=== PATIENT | female | born 1965 | race Caucasian/White ===

== ENCOUNTER 2021-06-21 15:07 | Outpatient (CLI) | payer BC, SELFPAY ==
--- NOTE | ~2021-06-21 | MM_ITS ---
EXAMINATION: MM screening [facility] BI w yanick HISTORY: Screening mammogram TECHNIQUE: Craniocaudal and mediolateral oblique 3-D tomosynthesis images were obtained and synthetic 2-D images were generated. CAD analysis was submitted and interpreted. COMPARISON: 07/10/2019, 09/04/2016, 11/25/2013 BREAST PARENCHYMAL COMPOSITION: There are scattered areas of fibroglandular density. FINDINGS: There is no evidence of suspicious mass, calcification, or architectural distortion to sugg est malignancy in either breast. There has been no suspicious interval change. IMPRESSION: 1. No mammographic evidence of malignancy. 2. Recommend routine screening mammography in one year. BI-RADS Category 1: Negative Reviewed, dictated and finalized at location A. PART REDUCER
== END 2021-06-21 15:08 | disposition home or self-care (01) ==
LOC: ANHIMG 15:09
PROVIDERS: PCP Family Medicine; Visit Provider Obstetrics & Gynecology
DX: Z12.31 Encounter for screening mammogram for malignant neoplasm of breast (principal)
CPT/HCPCS: 77063; 77067

== ENCOUNTER 2022-05-24 18:16 | Observation (INO) | payer BC, SELFPAY ==
--- NOTE | ~2022-05-24 | MR_ITS ---
EXAMINATION: MR MRCP wo/w con/w 3D wo ind DATE: 05/25/2022 08:04 INDICATION: Epigastric pain and elevated liver enzymes TECHNIQUE: Magnetic resonance imaging (MRI) of the abdomen was performed without and with 20 mL Multi isabel intravenous contrast. Sequences included coronal T2-weighted SS-FSE, coronal T2-weighted FS SS- FSE, coronal T2-weighted FS FIESTA, axial T2-weighted FS FIESTA, axial T2-weighted FIESTA, sagittal T 2-weighted SS-FSE, axial T1-weighted dual-echo FSPGR, axial T2-weighted SS-FSE, axial T1-weighted LAV A, axial T2-weighted STIR FSE. Thick-slab T2-weighted FRFSE-XL images were obtained for magnetic reso nance cholangiopancreatography (MRCP). Rotating maximum intensity projection 3-D reconstructions of t he volumetric data were created by the technologist. Postcontrast sequences included a time course of axial T1-weighted LAVA. COMPARISON: CT abdomen pelvis dated 06/03/2022 FINDINGS: ABDOMEN MRI: Heart size is normal. No pericardial or pleural effusion. There is subtle increased signal in the dep endent lower lobes which on immediately prior CT appears most consistent with atelectasis. Status pos t cholecystectomy. There is periportal edema at the liver. Spleen, pancreas, bilateral adrenal glands and kidneys are normal. Visualized portion of the bowels are unremarkable. The uterus is not identif ied and has likely been surgically resected. No pathologically enlarged abdominal or pelvic lympha denopathy. Mild thoracic and lumbar spondylosis. ABDOMEN MRCP: Is mild dilation of the common hepatic duct which measures up to 8 mm, decreasing to 6 mm at the prox imal common bile duct and tapering distally in the duct with no evident obstructing stones or masses. The main pancreatic duct is normal. No significant intrahepatic biliary ductal dilation. IMPRESSION: 1. Mild dilation of the common hepatic ducts which is within normal limits post cholecystectomy with no intrahepatic biliary ductal dilation. There is however nonspecific mild periportal edema which cou ld be due to acute hepatitis, congestive heart failure cholangitis, blunt trauma, sepsis or aggressiv e fluid resuscitation. Reviewed, dictated and finalized at location A. ARY COOK IMPRESSION: 1. Mild dilation of the common hepatic ducts which is within normal limits post cholecystectomy with no intrahepatic biliary ductal dilation. There is however nonspecific mild periportal edema which could be due to acute hepatitis, conge stive heart failure cholangitis, blunt trauma, sepsis or aggressive fluid resus citation.
--- NOTE | ~2022-05-24 | CT_ITS ---
EXAMINATION: CT abdomen pelvis w con DATE: 05/25/2022 00:10 INDICATION: Upper abdominal/epigastric pain, nausea and elevated liver enzymes TECHNIQUE: Computed tomography (CT) of the abdomen and pelvis was performed with 100 mL Omnipaque-350 intravenous contrast. Automated exposure control and iterative reconstruction technique were employe d. The dose-length product was 986.26 mGy-cm. COMPARISON: 08/26/2007 FINDINGS: Mild dependent atelectasis in the bilateral lower lobes. Heart size is normal. No pericardial or pleu ral effusion. Calcified right hilar and mediastinal lymph nodes along with a few splenic calcific les ions consistent with old granulomatous disease. Postoperative change of prior sleeve gastrectomy with suture line along the greater curvature of the stomach. Mild dilation the common hepatic duct which measures up to 11 mm. This tapers throughout the course of the more distal common bile duct with no e vident obstructing stricture, mass or stone. Minimal central intrahepatic biliary ductal dilation. Blake th findings are within normal limits post cholecystectomy with surgical clips at the gallbladder nayeli a. Pancreas, bilateral adrenal glands and kidneys are normal. Appendix is not visualized with suture line near the tip of the cecum consistent with prior appendectomy. Bladder is normal. The uterus is n ot identified and has likely been surgically resected. Bilateral adnexa are unremarkable. No free int raperitoneal gas or fluid. No pathologically enlarged abdominal or pelvic lymphadenopathy. Moderate t o severe lower lumbar facet osteoarthritis. Mild to moderate osteoarthritis at the bilateral hip and sacroiliac joints. IMPRESSION: 1. Mild dilation the common hepatic and common bile ducts and minimal intrahepatic biliary ductal dil ation which is within normal limits with no evident obstructing stone or mass. Given the 11th of func tion tests consider MRCP to assess for occult stone. 2. Multiple postoperative changes detailed above. Reviewed, dictated and finalized at location A. UREMENT INSPECTOR IMPRESSION: 1. Mild dilation the common hepatic and common bile ducts and minimal intrahepa tic biliary ductal dilation which is within normal limits with no evident obstr ucting stone or mass. Given the 11th of function tests consider MRCP to assess for occult stone. 2. Multiple postoperative changes detailed above.
[2022-05-24 18:35] VITALS: BP 154/108; PULSE 68; RESP 18; TEMP 36.6; O2SAT 98
--- NOTE | 2022-05-24 18:43 | ECG_ITS ---
Measurements Intervals [place] Rate: 60 P: 31 [place]: 152 QRS: 14 QRSD: 95 T: 21 QT: 431 QTc: 432 Interpretive Statements SINUS RHYTHM NORMAL ECG NO PREVIOUS ECG AVAILABLE FOR COMPARISON Electronically Signed On 05-25-2022 8:32:52 OWNER PROFESSIONAL ENGINEER by Mert Vieira M.D.
[2022-05-24 19:02] LABS: Appearance Urine Clear (Clear); Bilirubin Urine Negative (Negative); Blood Urine Negative (Negative); Color Urine Yellow (Yellow); Glucose Urine UA Negative (Negative); Ketones Urine Negative (Negative); Leukocyte Esterase Ur Negative LEU/UL (Negative); Nitrate Urine Negative (Negative); Protein Urine Negative (Negative); Specific Grav Ur 1.015 (1.001-1.035); Urobilinogen Urine 0.2 mg/dL (<2.0)
[2022-05-24 19:05] LABS: Basophils Percent Auto 0.7 % (0.2-1.2); Eosinophils Percent Auto 0.7 % (0-4.4); Hematocrit 33.4 % (37.0-47.0); Hemoglobin 10.6 g/dL (12.0-15.0); Immature Granulocyte Absolute 0.01 K/mm3 (0.00-0.031); Immature Granulocyte Percent A 0.2 % (0-0.5); Immature Platelet Fraction Pct 5.1 % (0.9-11.2); Lymphocytes Absolute Auto 1.11 K/mm3 (0.9-3.2); Lymphocytes Percent Auto 27.2 % (18.3-44.2); Mean Corpuscular HGB Conc 31.7 g/dl (32-36); Mean Corpuscular Hemoglobin 27.5 pg (26-34); Mean Corpuscular Volume 86.5 fl (80-100); Mean Platelet Volume 10.8 fl (7.4-10.4); Monocytes Absolute Auto 0.4 K/mm3 (0.1-0.6); Monocytes Percent Auto 10.3 % (2.6-8.5); Neutrophils Absolute Auto 2.5 K/mm3 (1.3-6.7); Neutrophils Percent Auto 60.9 % (45.5-73.1); Platelet Count Result 87 k/mm3 (150-375); Red Blood Count 3.86 M/mm3 (4.2-5.4); Red Cell Distribution Width 14.6 % (11.5-14.5); White Blood Count 4.1 K/mm3 (4.5-10.0)
[2022-05-24 19:05] LABS: Add Urine Microscopic? NO
[2022-05-24 19:11] LABS: Alanine Aminotransferase 316 U/L (6-35); Albumin Level 4.2 g/dL (3.5-5.1); Alkaline Phosphatase 152 U/L (38-126); Anion Gap 5 mmol/L (8-16); Bilirubin,Total 1.5 mg/dL (0.2-1.3); Blood Urea Nitrogen 10 mg/dL (7-17); Carbon Dioxide 27 mmol/L (22-30); Chloride 103 mmol/L (98-107); Estimated CRCL calculation 89 ml/min; Estimated Glomerular Filt Rate > 60; Glucose 112 mg/dL (65-110); Lipase 114 U/L (23-300); Potassium 3.6 mmol/L (3.4-5.0); Sodium 135 mmol/L (137-145)
[2022-05-24 19:19] LABS: Aspartate Amino Transferase 942 U/L (14-36)
--- NOTE | 2022-05-24 23:34 | ED.ABDPAIN ---
HPI - Abdominal Pain General Chief Complaint: Abdominal Pain Stated Complaint: abdominal pain - hx ulcers Time Seen by Provider: 05/24/22 23:18 History of Present Illness HPI narrative: Patient is a 56-year-old female with a history of gastric sleeve 11 years ago, appendectomy, cholecystectomy, here for evaluation of epigastric abdominal discomfort. Patient states that her pain began while she was at rest earlier today. She describes it as a burning, gnawing sensation. She attempted Prilosec without relief of her symptoms. Additionally notes nausea but no vomiting. Her last bowel movement was today and was normal for her. No fevers, chills, new or suspicious foods. Patient does note frequent NSAID use and occasional alcohol use, about 3 drinks/week. Related Data Allergies Allergy/AdvReac Type Severity Reaction Status Date / Time codeine Allergy Unknown Hives Verified 05/24/22 18:17 NSAIDS (Non-Steroidal Allergy Unknown due to Verified 05/24/22 18:17 Anti-Inflamma gastric sleeve Review of Systems Review of Systems: Gen: Denies fevers or chills Eyes: Denies eye pain or visual change ENT: Denies congestion Respiratory: Denies shortness of breath or cough CV: Denies chest pain or palpitations GI: Reports abdominal pain, nausea. Denies emesis or diarrhea denies burning, urgency, frequency or hematuria Musculoskeletal: Denies back pain or muscle pain Neuro: Denies numbness, tingling, weakness or focal weakness Skin: Denies rash Except as documented, all other systems reviewed and negative PMFSH Surgical History Surgical History S/P appendectomy S/P bilateral breast reduction S/P cholecystectomy S/P D&C (status post dilation and curettage) S/P gastrectomy gastric sleeve S/P tonsillectomy S/P total hysterectomy Family History Family History Father Hypertension Mother Family history of diabetes mellitus in first degree relative Social History Social History Smoking status: Never smoker Alcohol intake: current Drinks per week: 3 Substance use: current Substance use type: marijuana Exam Narrative: APPEARANCE: uncomfortable appearing but no acute distress Head: Normocephalic and atraumatic. EYES: PERRLA/EOMI, conjunctivae clear NOSE: No nasal drainage EARS: External ear normal in appearance THROAT: Oropharynx is clear. Mucous membranes are moist. NECK: Supple. No adenopathy, no masses. RESPIRATORY: Airway patent, respirations nonlabored. Clear to auscultation bilaterally, no rales, rhonchi, wheezing. CARDIOVASCULAR: Regular rate and rhythm without murmurs, rubs, or gallops. ABDOMINAL: Slight tenderness in epigastric region with deep palpation. No rebound tenderness or guarding. Normoactive bowel sounds. Soft, nondistended. MUSCULOSKELETAL: Extremities are warm and well-perfused. Moves all extremities well. No edema. NEURO: Normal speech. No focal neurologic deficits. SKIN: Skin is warm and dry. No rashes. PSYCHIATRIC: Normal affect/mood. Course Vital Signs Vital signs: Vital Signs Temperature 97.8 F 05/24/22 18:35 Pulse Rate 68 05/24/22 18:35 Respiratory Rate 18 05/24/22 18:35 Blood Pressure 154/108 H 05/24/22 18:35 Pulse Oximetry 98 05/24/22 18:35 Oxygen Delivery Room Air 05/24/22 18:35 Temperature 97.8 F 05/24/22 18:35 Pulse Rate 62 05/25/22 02:02 Respiratory Rate 16 05/25/22 02:02 Blood Pressure 158/82 H 05/25/22 02:02 Pulse Oximetry 100 05/25/22 02:02 Oxygen Delivery Room Air 05/24/22 18:35 MDM - Abdominal Pain MDM Narrative Medical decision making narrative: 56-year-old female with history of cholecystectomy, appendectomy and gastric sleeve here for evaluation of epigastric abdominal pain for the past day. Patient is nontoxic-appearing and has normal vital signs.
[2022-05-24] MEDS: FAMOTIDINE 20 MG/2 ML VIAL IV PUSH (23:50)
[2022-05-24] MEDS: ONDANSETRON INJ 4 MG/2 ML VIAL IV PUSH (23:50)
[2022-05-25] MEDS: MORPHINE SULFATE (*CRX) 4 MG/ML INJ IV PUSH ×3 (01:50→09:46)
[2022-05-25] MEDS: SODIUM CHLORIDE 0.9% IV 1,000 ML 999 ML IV CONT (01:50)
[2022-05-25 02:02] VITALS: BP 158/82; PULSE 62; RESP 16; O2SAT 100
[2022-05-25 02:57] LABS: Influenza A QL RT-PCR Negative (Negative); Influenza B QL RT-PCR Negative (Negative); SARS-CoV-2 RNA PCR Negative
[2022-05-25 03:18] LABS: Hepatitis B Surface Antigen Negative (Negative)
[2022-05-25 03:23] LABS: HAV RESULT Negative (Negative); Hepatitis B Core IgM Result Negative (Negative)
[2022-05-25 03:32] LABS: Prothrombin Time 13.2 Seconds (11.1-14.7)
[2022-05-25 03:33] LABS: Partial Thromboplastin Time 27.5 SECONDS (22.3-36.8)
[2022-05-25 03:35] LABS: Hepatitis C Virus Antibody Negative (Negative)
[2022-05-25 04:10] VITALS: BMI 33.0
--- NOTE | 2022-05-25 04:14 | ADMGEN ---
This patient, Erin Loza, was admitted to [facility] Surg Room 332-02. Patient/family oriented to hospital policies and general routines including ID bracelet, bed and alarms, visiting hours, pain management, procedures, bathroom and other care routines, personal items, smoking policy, room service/diet, and visiting hours. Information on how to activate the Rapid Response Team has been discussed. Patient/Family are encouraged to report perceived risks to care and to ask questions if they do not understand what they are told or what they should do.
[2022-05-25] MEDS: SODIUM CHLORIDE 0.9% IV 1,000 ML 150 ML IV CONT (04:35)
[2022-05-25 06:00] VITALS: BP 151/73; PULSE 61; RESP 16; TEMP 36.1; O2SAT 98
[2022-05-25 08:40] LABS: Hematocrit 30.5 % (37.0-47.0); Hemoglobin 9.5 g/dL (12.0-15.0); Immature Platelet Fraction Pct 4.9 % (0.9-11.2); Mean Corpuscular HGB Conc 31.1 g/dl (32-36); Mean Corpuscular Hemoglobin 26.7 pg (26-34); Mean Corpuscular Volume 85.7 fl (80-100); Mean Platelet Volume 10.8 fl (7.4-10.4); Platelet Count Result 78 k/mm3 (150-375); Red Blood Count 3.56 M/mm3 (4.2-5.4); Red Cell Distribution Width 14.6 % (11.5-14.5); White Blood Count 2.9 K/mm3 (4.5-10.0)
--- NOTE | 2022-05-25 08:40 | PM.IMHP ---
H&P: HPI History of Present Illness Date/Time: 05/25/22 08:40 Chief Complaint: epigastric pain Narrative: date of service: 05/25/2022 Erin Loza is a 56 year old female with a history of hypertension, anxiety, depression, endometriosis, cholecystectomy in 2005 and sleeve gastrectomy in 2007 who presented to the emergency department 05/24/2022 with complaints abdominal burning. Her pain started yesterday morning around 10:00 a.m. after she ate part of a biscuit. Her pain worsened throughout the day. She did try Mylanta and Prilosec without any symptomatic improvement. She admits that she has been taking ibuprofen more frequently lately (a couple of times a week) and she was worried about an ulcer. She indicates that she has been instructed in the past to avoid NSAIDs due to her history of sleeve gastrectomy. Yesterday she felt that her epigastric region was hard and tender. Her pain was worse with deep inspiration. When she arrived to the ER she had dry heaves but never had any episodes of emesis. She denies any recent stool changes and reports that she has had regular, formed stools. Denies melena, hematochezia, hematemesis. Upon presentation to the ED, her vital signs were stable, she was afebrile, noted to be mildly pancytopenic, BMP unremarkable with elevated LFTs, total bilirubin 1.5, AST 942, ALT 316, alk-phos 152, lipase normal, stat read of CT of the abdomen/pelvis showed evidence of prior cholecystectomy with mild intrahepatic and extrahepatic biliary ductal dilation. At the time of my evaluation, she continues to endorse epigastric discomfort. she denies nausea , fever, chills. She is NPO. No shortness of breath or chest pain. The patient is being admitted to the hospitalist service for observation. Review of Systems Review of Systems: All systems reviewed & are unremarkable except as noted in HPI and below PMFSH Past Medical History Medical History (Updated 05/25/22 @ 08:51 by Ana Hancock PA-C) Anxiety Depression Endometriosis Hypertension Surgical History Surgical History (Updated 05/25/22 @ 08:51 by Ana Hancock PA-C) S/P appendectomy S/P bilateral breast reduction S/P cholecystectomy S/P D&C (status post dilation and curettage) S/P gastrectomy gastric sleeve S/P tonsillectomy S/P total hysterectomy Family History Family History Father Hypertension Colon cancer H/O heart surgery Mother Family history of diabetes mellitus in first degree relative COPD (chronic obstructive pulmonary disease) Stented coronary artery Social History Social History (Updated 05/25/22 @ 08:56 by Ana Hancock PA-C) Social History: 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 Case PA-C POA: Oliverio Loza () Code: Full Smoking status: Never smoker Alcohol intake: current Drinks per week: 2 Substance use: current Substance use type: marijuana Other substance usage details: edibles nightly for sleep Lack of Transportation: No Lack of Food: Never True Current Housing: I Have Housing Concerned About Future Housing: No Difficulty Paying Gas/Electric Bills: No Difficulty Paying for Meds: No Currently Unemployed: No Education: High School Diploma/GED Difficulty w/ Childcare or Family Care: No Spiritual care concerns: No Meds Home Medications and Allergies Home Medications Medication Instructions Recorded Confirmed Type citalopram 40 mg tablet (Celexa) 40 mg PO DAILY #90 tabs 11/13/21 05/25/22 Rx buspirone 15 mg tablet 15 mg PO BID 05/25/22 05/25/22 History ergocalciferol (vitamin D2) 1,250 1,250 mcg PO WEEKLY 05/25/22 05/25/22 History mcg (50,000 unit) capsule lisinopril 10 mg tablet 10 mg PO DAILY 05/25/22 05/25/22 History Allergies Allergy/AdvReac Type Severity Reaction Status Date / Time codeine Allergy Unknown Hives Verified 05/25/22 04:20
[2022-05-25 09:16] LABS: Alanine Aminotransferase 471 U/L (6-35); Albumin Level 3.7 g/dL (3.5-5.1); Alkaline Phosphatase 153 U/L (38-126); Anion Gap 3 mmol/L (8-16); Bilirubin,Total 3.3 mg/dL (0.2-1.3); Blood Urea Nitrogen 6 mg/dL (7-17); Calcium 8.2 mg/dL (8.4-10.2); Carbon Dioxide 28 mmol/L (22-30); Chloride 106 mmol/L (98-107); Estimated CRCL calculation 92 ml/min; Estimated Glomerular Filt Rate > 60; Glucose 88 mg/dL (65-110); Potassium 3.9 mmol/L (3.4-5.0); Sodium 137 mmol/L (137-145)
[2022-05-25] MEDS: SODIUM CHLORIDE 0.9% IV 1,000 ML 100 ML IV CONT (09:40)
--- NOTE | 2022-05-25 11:04 | WPDGICN ---
Assessment and Plan Assessment and plan (1) Epigastric abdominal pain: Code(s): R10.13 - Epigastric pain Status: Acute Assessment and Plan: Patient with epigastric pain somewhat burning in nature. Etiology unclear. This may represent dyspepsia. Plan to keep patient on pantoprazole for now. If pain persist EGD on Friday is advised. (2) S/P cholecystectomy: Code(s): Z90.49 - Acquired absence of other specified parts of digestive tract Status: Acute (3) Dilated bile duct: Code(s): K83.8 - Other specified diseases of biliary tract Status: Acute Assessment and Plan: Patient described as having mildly dilated bile ducts on imaging studies likely this is related to prior cholecystectomy and not related to her current condition. MRCP pending to exclude common bile duct obstruction. This will be reviewed when available. (4) Transaminitis: Code(s): R74.01 - Elevation of levels of liver transaminase levels Status: Acute Assessment and Plan: Elevated LFTs. The etiology for this is somewhat uncertain. Likely related to her current complaints of pain. Will check MRCP to exclude biliary obstruction. Fractionate bilirubin. Hepatitis serologies initially negative. She may have been exposed to a virus or agent causing this. Will continue monitor LFTs closely. (5) Pancytopenia: Code(s): D61.818 - Other pancytopenia Status: Acute Assessment and Plan: Patient found to have pancytopenia on laboratory testing. The etiology for this is somewhat unclear. May need hematologic evaluation at some point. No evidence cirrhosis by CT imaging or history. GI Consult Note Consult date/time: 05/25/22 11:04 Reason for consult: abdominal pain HPI: Erin Loza is a 56 year old female reports rather sudden onset of mid epigastric abdominal pain that began yesterday. She describes is somewhat burning in nature. Patient presented emergency room was found to have modest elevation of her LFTs. Patient has a past medical history of gastric sleeve for weight loss many years ago. She has a history of cholecystectomy. Patient denies any fever or jaundice. Her family history is noncontributory. She does report using NSAIDs r quite frequently. Review of Systems Review of Systems: Review of systems noncontributory. [facility] Past Medical History Medical History (Updated 05/25/22 @ 08:51 by Ana Hancock PA-C) Anxiety Depression Endometriosis Hypertension Surgical History Surgical History (Updated 05/25/22 @ 08:51 by Ana Hancock PA-C) S/P appendectomy S/P bilateral breast reduction S/P cholecystectomy S/P D&C (status post dilation and curettage) S/P gastrectomy gastric sleeve S/P tonsillectomy S/P total hysterectomy Family History Family History Father Hypertension Colon cancer H/O heart surgery Mother Family history of diabetes mellitus in first degree relative COPD (chronic obstructive pulmonary disease) Stented coronary artery Social History Social History (Updated 05/25/22 @ 08:56 by Ana Hancock PA-C) Social History: 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 Case PA-C POA: Oliverio Loza () Code: Full Smoking status: Never smoker Alcohol intake: current Drinks per week: 2 Substance use: current Substance use type: marijuana Other substance usage details: edibles nightly for sleep Lack of Transportation: No Lack of Food: Never True Current Housing: I Have Housing Concerned About Future Housing: No Difficulty Paying Gas/Electric Bills: No Difficulty Paying for Meds: No Currently Unemployed: No Education: High School Diploma/GED Difficulty w/ Childcare or Family Care: No Spiritual care concerns: No Meds Home Medications and Allergies Home Medications Medication Instruc
[2022-05-25 11:36] LABS: Aspartate Amino Transferase 801 U/L (14-36)
[2022-05-25] MEDS: PANTOPRAZOLE SODIUM IV 40 MG VIAL IV PUSH ×2 (12:33→20:34)
[2022-05-25 12:36] LABS: Bilirubin Direct 0.8 mg/dL (0-0.3); Bilirubin Indirect 1.4 mg/dL (0-1.1); Bilirubin,Total 3.3 mg/dL (0.2-1.3)
[2022-05-25 14:00] VITALS: BP 138/76; PULSE 75; RESP 18; TEMP 36.1; O2SAT 98
[2022-05-25] MEDS: ONDANSETRON INJ 4 MG/2 ML VIAL IV PUSH (20:59)
[2022-05-25 22:00] VITALS: BP 153/75; PULSE 61; RESP 18; TEMP 36.2; O2SAT 98
[2022-05-26 06:00] VITALS: BP 138/64; PULSE 54; RESP 14; TEMP 36.1; O2SAT 99
[2022-05-26 07:58] LABS: Basophils Percent Auto 0.6 % (0.2-1.2); Eosinophils Absolute Auto 0.1 K/mm3 (0-0.3); Eosinophils Percent Auto 2.1 % (0-4.4); Hematocrit 34.8 % (37.0-47.0); Hemoglobin 10.9 g/dL (12.0-15.0); Immature Granulocyte Absolute 0.01 K/mm3 (0.00-0.031); Immature Granulocyte Percent A 0.3 % (0-0.5); Immature Platelet Fraction Pct 6.5 % (0.9-11.2); Lymphocytes Absolute Auto 0.89 K/mm3 (0.9-3.2); Lymphocytes Percent Auto 27.3 % (18.3-44.2); Mean Corpuscular HGB Conc 31.3 g/dl (32-36); Mean Corpuscular Hemoglobin 27.7 pg (26-34); Mean Corpuscular Volume 88.3 fl (80-100); Mean Platelet Volume 10.4 fl (7.4-10.4); Monocytes Absolute Auto 0.3 K/mm3 (0.1-0.6); Monocytes Percent Auto 10.4 % (2.6-8.5); Neutrophils Absolute Auto 1.9 K/mm3 (1.3-6.7); Neutrophils Percent Auto 59.3 % (45.5-73.1); Platelet Count Result 91 k/mm3 (150-375); Red Blood Count 3.94 M/mm3 (4.2-5.4); Red Cell Distribution Width 14.4 % (11.5-14.5); White Blood Count 3.3 K/mm3 (4.5-10.0)
[2022-05-26 08:06] LABS: Alanine Aminotransferase 423 U/L (6-35); Alkaline Phosphatase 189 U/L (38-126); Anion Gap 6 mmol/L (8-16); Aspartate Amino Transferase 329 U/L (14-36); Bilirubin,Total 1.3 mg/dL (0.2-1.3); Blood Urea Nitrogen 4 mg/dL (7-17); Calcium 8.8 mg/dL (8.4-10.2); Carbon Dioxide 24 mmol/L (22-30); Chloride 103 mmol/L (98-107); Estimated CRCL calculation 92 ml/min; Estimated Glomerular Filt Rate > 60; Glucose 94 mg/dL (65-110); Potassium 3.8 mmol/L (3.4-5.0); Sodium 133 mmol/L (137-145)
[2022-05-26] MEDS: PANTOPRAZOLE SODIUM IV 40 MG VIAL IV PUSH (09:07)
--- NOTE | 2022-05-26 11:34 | WPDGIPROGNO ---
Progress Note: A&P Assessment and Plan (1) Epigastric abdominal pain: Code(s): R10.13 - Epigastric pain Status: Acute Assessment and Plan: Patient admitted with a burning epigastric pain. She does admit to rather frequent heavy use of nonsteroidal anti-inflammatory agents. I suspect she may have ulceration. Plan to continue PPI therapy. Avoid NSAIDs. An EGD will be performed in the morning. Should patient be discharged this could be performed electively as an outpatient. (2) Transaminitis: Code(s): R74.01 - Elevation of levels of liver transaminase levels Status: Acute Assessment and Plan: Elevated LFTs at the time of admission or events somewhat uncertain etiology. Continue monitor conservatively at this point. LFTs should be monitored to ensure they resolve completely. (3) Pancytopenia: Code(s): D61.818 - Other pancytopenia Status: Acute Assessment and Plan: Pain pancytopenia identified. No obvious signs of bleeding. Etiology for this remains unclear. She may benefit from hematologic evaluation at some point. (4) S/P cholecystectomy: Code(s): Z90.49 - Acquired absence of other specified parts of digestive tract Status: Acute Assessment and Plan: Patient with prior cholecystectomy. Likely this accounts for biliary dilatation noted on presentation. This is likely compensatory Subjective Date/time seen: 05/26/22 11:34 Patient reports abdomen more comfortable today. Denies any ongoing abdominal pain she does note a headache today. Review of Systems Review of Systems: Review of systems noncontributory. Exam Narrative: Physical exam reveals patient be alert. Vital signs stable. She is alert afebrile anicteric. Lungs are clear. Heart without murmur. Abdomen bowel sounds present soft nontender organomegaly. Objective Data Vital Signs Vital Signs: Vital Signs - 24 hr 05/25/22 14:00 05/25/22 20:34 05/25/22 22:00 Temperature 96.9 F L 97.1 F L Pulse Rate 75 61 Respiratory Rate 18 18 Blood Pressure 138/76 153/75 H Pulse Oximetry 98 98 Oxygen Delivery Room Air 05/26/22 06:00 Temperature 97 F L Pulse Rate 54 L Respiratory Rate 14 Blood Pressure 138/64 Pulse Oximetry 99 Oxygen Delivery Intake/Output Intake/Output: Intake & Output 05/23/22 05/24/22 05/25/22 05/26/22 23:59 23:59 23:59 23:59 Intake Total 1200 600 Output Total 1500 Balance -300 600 Meds/Results Medications: Active Medications Generic Name Dose Route Start Last Admin Trade Name Freq PRN Reason Stop Dose Admin Hydralazine HCl 10 mg 05/25/22 09:03 Hydralazine Hcl 20 Mg/Ml Vial IV PUSH Q8H PRN Systolic BP >165 Morphine Sulfate 4 mg 05/25/22 02:26 05/25/22 09:46 Morphine Sulfate (*Crx) 4 Mg/Ml Inj IV PUSH 4 mg Q4H PRN Administration Pain Rated 7-10 Ondansetron HCl 4 mg 05/25/22 02:26 05/25/22 20:59 Ondansetron Inj 4 Mg/2 Ml Vial IV PUSH 4 mg Q4H PRN Administration Nausea Pantoprazole Sodium 40 mg 05/25/22 10:05 05/26/22 09:07 Pantoprazole Sodium Iv 40 Mg Vial IV PUSH 40 mg Q12HR ANNA Administration Radiology Results: ITS Impressions MRCP 05/25/22 08:34 IMPRESSION: 1. Mild dilation of the common hepatic ducts which is within normal limits post cholecystectomy with no intrahepatic biliary ductal dilation. There is however nonspecific mild periportal edema which could be due to acute hepatitis, congestive heart failure cholangitis, blunt trauma, sepsis or aggressive fluid resuscitation. Abdomen/Pelvis CT 05/25/22 08:36 IMPRESSION: 1. Mild dilation the common hepatic and common bile ducts and minimal intrahepatic biliary ductal dilation which is within normal limits with no evident obstructing stone or mass. Given the 11th of function tests consider MRCP to assess for occult stone. 2. Multiple postoperative changes detailed above. Labs
[2022-05-26] MEDS: ACETAMINOPHEN/ASPIRIN/CAFFEINE 250-250-65 MG TABLET 1 TABLET PO (13:59)
--- NOTE | 2022-05-26 14:05 | PM.DS ---
DS: Admitting Diagnosis Discharge Date 05/26/2022 Admitting Diagnosis Epigastric pain DS: Discharge Diagnosis Discharge Diagnosis (1) Epigastric abdominal pain: Code(s): R10.13 - Epigastric pain Status: Acute Assessment and Plan: Complained of burning epigastric pain following recent NSAID use. No signs/symptoms to suggest acute GI bleeding. Patient was seen in consultation by Gastroenterology and EGD was recommended. Patient opted for outpatient follow-up to schedule this. She was started on Protonix 40 mg daily and will avoid NSAIDs. (2) Dilated bile duct: Code(s): K83.8 - Other specified diseases of biliary tract Status: Acute Assessment and Plan: CT of abdomen/pelvis on presentation showed mild dilation of common hepatic and common bile ducts and minimal intrahepatic biliary ductal dilation. Patient was seen in consultation by Gastroenterology and underwent MRCP which revealed mild dilation of the common hepatic ducts which is within normal limits status post cholecystectomy with no intrahepatic biliary ductal dilation. (3) Transaminitis: Code(s): R74.01 - Elevation of levels of liver transaminase levels Status: Acute Assessment and Plan: LFTs markedly elevated on presentation with downward trend. Etiology for this is uncertain based on findings of CT and MRCP as noted above. AST decreased threefold and ALT was trending down more slowly. Alk phos only mildly elevated and total bilirubin normalized. LFTs will be monitored closely. Patient will repeat CMP in 1 week and continue to follow with GI (4) Pancytopenia: Code(s): D61.818 - Other pancytopenia Status: Acute Assessment and Plan: Etiology for this is unclear. Review of electronic medical record does indicate history of leukopenia though no prior labs available for review here. PT/INR within normal limits. No evidence of cirrhosis. Will repeat CBC with differential in 1 week and she has been referred to Hematology as an outpatient (5) Essential (primary) hypertension: Code(s): I10 - Essential (primary) hypertension Status: Acute Assessment and Plan: Blood pressure reasonably controlled. Continue home lisinopril (6) S/P cholecystectomy: Code(s): Z90.49 - Acquired absence of other specified parts of digestive tract Status: Acute Assessment and Plan: Cholecystectomy in 2005 DS: Summary Hospital Course Hospital Course: Date of admission: 05/24/2022 Date of discharge: 05/26/2022 Erin Loza is a 56 year old female with a history of? hypertension, anxiety, depression, endometriosis, cholecystectomy in 2005 and sleeve gastrectomy in 2007 who presented to the emergency department?on 05/24/2022 with complaints of abdominal burning. Upon presentation to the ED, her vital signs were stable, she was afebrile, noted to be mildly pancytopenic, BMP unremarkable with elevated LFTs, total bilirubin 1.5, AST 942, ALT 316, alk-phos 152, lipase normal, stat read of CT of the abdomen/pelvis showed evidence of prior cholecystectomy with mild intrahepatic and extrahepatic biliary ductal dilation. She was admitted to the hospitalist service for further evaluation management was seen in consultation by Gastroenterology. Please see above for further details. She underwent MRCP which was negative for obstruction of common bile duct. LFTs trended down. Patient did have epigastric pain that was concerning for possible ulceration vs dyspepsia. Inpatient EGD was offered, however patient preferred to discharge home and follow up for outpatient EGD promptly. She will have a repeat CMP in 3 days to ensure improvement of LFTs and will continue to follow until transaminitis is resolved. She was noted to have pancytopenia during admission, an etiology for this is unclear. She will have a repeat CBC with differential as an outpatient and has been referred to Hematolog
== END 2022-05-26 14:20 | disposition home or self-care (01) ==
LOC: ANHED 05-25 02:35 → ANH3MEDSUR 05-25 04:04
PROVIDERS: Emergency Medicine; Internal Medicine Gastroenterology; Physician Assistant; Admitting Provider Internal Medicine; Emergency Provider Emergency Medicine; PCP Physician Assistant; Visit Provider Physician Assistant
DX: R10.13 Epigastric pain (principal); K83.8 Other specified diseases of biliary tract; R74.01 Elevation of levels of liver transaminase levels; D61.818 Other pancytopenia; I10 Essential (primary) hypertension; Z90.49 Acquired absence of other specified parts of digestive tract; Z90.710 Acquired absence of both cervix and uterus; Z98.84 Bariatric surgery status; N32.89 Other specified disorders of bladder; K57.90 Diverticulosis of intestine, part unspecified, without perforation or abscess without bleeding; N80.9 Endometriosis, unspecified; K76.89 Other specified diseases of liver; L92.8 Other granulomatous disorders of the skin and subcutaneous tissue; Z20.822 Contact with and (suspected) exposure to COVID-19; F12.90 Cannabis use, unspecified, uncomplicated; Q42.8 Congenital absence, atresia and stenosis of other parts of large intestine; F41.9 Anxiety disorder, unspecified; F32.A Depression, unspecified; F10.90 Alcohol use, unspecified, uncomplicated; Z79.1 Long term (current) use of non-steroidal anti-inflammatories (NSAID); Z83.3 Family history of diabetes mellitus; Z82.5 Family history of asthma and other chronic lower respiratory diseases; Z82.49 Family history of ischemic heart disease and other diseases of the circulatory system; Z79.899 Other long term (current) drug therapy
CPT/HCPCS: 36415; 74177; 74183; 76376; 80053; 80074; 81003; 82247; 82248; 83690; 85025; 85027; 85055; 85610; 85730; 87636; 93005; 96361; 96365; 96374; 96375; 96376; 99285; A9270; A9577; C9113; G0378; J0131; J2270; J2405; J7030; Q9967

== ENCOUNTER 2022-06-04 00:49 | Day surgery (SDC) | payer BC, SELFPAY ==
[2022-05-30 15:07] VITALS: BMI 31.7
[2022-06-04 06:19] VITALS: BP 146/83; PULSE 78; RESP 16; TEMP 36.3; O2SAT 100; BMI 31.8
[2022-06-04] MEDS: LACTATED RINGERS 1,000 ML 150 ML IV CONT (06:31)
--- NOTE | 2022-06-04 07:01 | WPDANESEPPF ---
Anes - Initial Pre Proc Eval Procedure: Operation Date: 06/04/22 07:30 Proposed Procedures p Esophagogastroduodenoscopy - Scotty Lopez MD Date/Time: 06/04/22 07:01 Surgeon: Scotty Loepz MD Pre Op Diagnosis: Epigastric pain Patient Data Age: 56 Gender: F Height: 1.7 m Weight: 92.4 kg Last Vital Signs Temp 36.3 C L 06/04/22 06:19 Pulse 78 06/04/22 06:19 Resp 16 06/04/22 06:19 BP 146/83 H 06/04/22 06:19 Pulse Ox 100 06/04/22 06:19 O2 Del Method Room Air 06/04/22 06:19 Allergies Allergy/AdvReac Type Severity Reaction Status Date / Time codeine Allergy Unknown Hives Verified 06/04/22 06:17 Home Medications Medication Instructions Recorded Confirmed Type buspirone 15 mg tablet 15 mg PO BID 05/25/22 06/04/22 History ergocalciferol (vitamin D2) 1,250 1,250 mcg PO WEEKLY 05/25/22 06/04/22 History mcg (50,000 unit) capsule lisinopril 10 mg tablet 10 mg PO DAILY 05/25/22 06/04/22 History pantoprazole 40 mg tablet,delayed 40 mg PO QAM #30 tabs 05/26/22 06/04/22 Rx release citalopram 40 mg tablet (Celexa) 40 mg PO DAILY #90 tabs 05/27/22 06/04/22 Rx Patient hx anesthesia problems: none Family hx anesthesia problems: none Results Review: All pre-operative results and documents have been reviewed as part of the pre-operative evaluation. [facility] Past Medical History Medical History Anxiety Depression Endometriosis Hypertension Surgical History Surgical History S/P appendectomy S/P bilateral breast reduction S/P cholecystectomy S/P D&C (status post dilation and curettage) S/P gastrectomy gastric sleeve S/P tonsillectomy S/P total hysterectomy Family History Family History Father Hypertension Colon cancer H/O heart surgery Mother Family history of diabetes mellitus in first degree relative COPD (chronic obstructive pulmonary disease) Stented coronary artery Social History Social History Social History: 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 Case PA-C POA: Oliverio Loza () Code: Full Smoking status: Never smoker Alcohol intake: current Drinks per week: 4 Substance use: current Substance use type: marijuana Other substance usage details: marijuana edibles Lack of Transportation: No Lack of Food: Never True Current Housing: I Have Housing Concerned About Future Housing: No Difficulty Paying Gas/Electric Bills: No Difficulty Paying for Meds: No Currently Unemployed: No Education: High School Diploma/GED Difficulty w/ Childcare or Family Care: No Living arrangements: with family Spiritual care concerns: No Anes - Eval Final PreProcedure Day of Procedure 06/04/22 07:01 Patient weight: obese Heart: regular rate and rhythm Lungs: clear to auscultation Airway: Mallampati scale class II Last oral intake: >/= 8 hours ASA classification: II Emergent: no Anesthetic plan: proceed Anesthesia type and monitoring: general GIVS and standard monitoring Results Review: All pre-operative results and documents have been reviewed as part of the pre-operative evaluation. Informed Consent: The patient's anesthetic plan and its attendant risks and benefits were discussed with the patient/family/POA. Questions were solicited and answers provided to the satisfaction of the patient/family/POA.
--- NOTE | 2022-06-04 07:30 | WPDHPUPDATE1 ---
History and Physical Update Update Date/Time: 06/04/22 07:30 History and Physical has been reviewed, including an updated exam of the patient. There are NO changes in the patient's condition. Risks, benefits, and alternatives have been discussed and questions answered. Patient agrees to proceed with procedure. Patient recently hospitalized with epigastric pain. Modest elevation of liver transaminases suspicious for hepatitis. These were improving at the time of discharge. Patient continues to have epigastric pain. For this reason EGD was requested will be performed today.
[2022-06-04 07:45] VITALS: BP 129/81; PULSE 66; RESP 19; O2SAT 100
[2022-06-04 07:55] VITALS: BP 138/89; PULSE 67; RESP 19; O2SAT 100
[2022-06-04 08:05] VITALS: BP 146/90; PULSE 65; RESP 20; O2SAT 100
--- NOTE | 2022-06-04 08:20 | SUR.PHASEII ---
LFT's and CBC drawn per Gurvinder Estrada RN
[2022-06-04 08:36] LABS: Hematocrit 33.1 % (37.0-47.0); Hemoglobin 10.2 g/dL (12.0-15.0); Mean Corpuscular HGB Conc 30.8 g/dl (32-36); Mean Corpuscular Hemoglobin 27.1 pg (26-34); Mean Platelet Volume 10.4 fl (7.4-10.4); Platelet Count Result 153 k/mm3 (150-375); Red Blood Count 3.76 M/mm3 (4.2-5.4); Red Cell Distribution Width 14.6 % (11.5-14.5); White Blood Count 3.1 K/mm3 (4.5-10.0)
[2022-06-04 08:45] LABS: Alanine Aminotransferase 51 U/L (6-35); Albumin Level 3.9 g/dL (3.5-5.1); Alkaline Phosphatase 82 U/L (38-126); Aspartate Amino Transferase 28 U/L (14-36); Bilirubin,Total 0.5 mg/dL (0.2-1.3)
== END 2022-06-04 08:20 | disposition home or self-care (01) ==
PROVIDERS: PCP Physician Assistant; Visit Provider Internal Medicine Gastroenterology
PROC: 0DJ08ZZ Inspection of Upper Intestinal Tract, Via Natural or Artificial Opening Endoscopic (ICD-10-PCS; CPT 43235; principal; 2022-06-04 07:30)
DX: R10.13 Epigastric pain (principal); I10 Essential (primary) hypertension; F41.9 Anxiety disorder, unspecified; F32.A Depression, unspecified; Z98.84 Bariatric surgery status; F12.90 Cannabis use, unspecified, uncomplicated; E66.9 Obesity, unspecified; Z68.31 Body mass index [BMI] 31.0-31.9, adult
CPT/HCPCS: 43239; 36415; 80076; 85027; 87081; J2704; J7120

== ENCOUNTER 2022-06-27 11:41 | Outpatient (CLI) | payer BC, SELFPAY ==
[2022-06-27 12:25] LABS: Alanine Aminotransferase 20 U/L (6-35); Albumin Level 4.4 g/dL (3.5-5.1); Alkaline Phosphatase 65 U/L (38-126); Aspartate Amino Transferase 28 U/L (14-36); Bilirubin,Total 0.5 mg/dL (0.2-1.3)
== END 2022-06-27 11:42 | disposition home or self-care (01) ==
LOC: ANHLAB 11:42
PROVIDERS: PCP Physician Assistant; Visit Provider Internal Medicine Gastroenterology
DX: D61.818 Other pancytopenia (principal); R74.01 Elevation of levels of liver transaminase levels
CPT/HCPCS: 36415; 80076

== ENCOUNTER → 2022-08-01 13:07 | Outpatient (CLI) | payer BC, SELFPAY ==
--- NOTE | ~2022-08-01 | MR_ITS ---
EXAMINATION: MR hand RT wo con DATE: 08/01/2022 13:53 INDICATION: Right hand pain, popping and swelling at the third digit post fall TECHNIQUE: Magnetic resonance imaging (MRI) of the right hand was performed without intravenous contr ast to include the metacarpals and digits but excluding the first carpal row. Sequences included axia l, sagittal and coronal T1-weighted FSE and T2-weighted FS FSE. COMPARISON: None FINDINGS: Bone alignment is normal. Normal marrow signal throughout with no fracture or pathologic marrow repla cing process. Mild polyarticular osteoarthritis at the first carpometacarpal, first metacarpophalange al and multiple interphalangeal joints with distal predominance. Small joint effusion at the third me tacarpophalangeal joint. There is prominent thickening and mild increased signal of the radial collat eral ligament complex of the third metacarpophalangeal joint with linear fluid signal extending at le ast partially across the ligament consistent with at least partial tear. Remaining collateral ligamen t complex at the metacarpophalangeal and interphalangeal joints appear normal. Visualized portions of the flexor and extensor tendons are normal. IMPRESSION: 1. At least partial tear of the medial collateral ligament complex at the right third metacarpophalan geal joint with associated small joint effusion. Reviewed, dictated and finalized at location A. ICAL SECRETARY IMPRESSION: 1. At least partial tear of the medial collateral ligament complex at the right third metacarpophalangeal joint with associated small joint effusion.
== END ==
PROVIDERS: PCP Physician Assistant; Visit Provider Orthopaedic Surgery Hand Surgery
DX: S63.652A Sprain of metacarpophalangeal joint of right middle finger, initial encounter (principal); M25.441 Effusion, right hand; T14.90XA Injury, unspecified, initial encounter
CPT/HCPCS: 73218

== ENCOUNTER 2023-01-08 09:35 | Outpatient (CLI) | payer BC, SELFPAY ==
--- NOTE | ~2023-01-08 | MM_ITS ---
EXAMINATION: MM screening [facility] BI w yanick HISTORY: Screening mammogram TECHNIQUE: Craniocaudal and mediolateral oblique 3-D tomosynthesis images were obtained and synthetic 2-D images were generated. CAD analysis was submitted and interpreted. COMPARISON: 06/21/2021, 07/10/2019, 09/04/2016 BREAST PARENCHYMAL COMPOSITION: There are scattered areas of fibroglandular density. FINDINGS: No suspicious mass, calcification, or architectural distortion are identified in either katharine ast to suggest malignancy. There has been no suspicious interval change. IMPRESSION: 1. No mammographic evidence of malignancy. 2. Recommend routine screening mammography in one year. BI-RADS Category 1: Negative Reviewed, dictated and finalized at location A.
== END 2023-01-08 09:36 | disposition home or self-care (01) ==
PROVIDERS: PCP Physician Assistant; Visit Provider Obstetrics & Gynecology
DX: Z12.31 Encounter for screening mammogram for malignant neoplasm of breast (principal)
CPT/HCPCS: 77063; 77067

== ENCOUNTER 2024-04-27 13:23 | Emergency (ER) | payer OTHER, BC, SELFPAY ==
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
[2024-04-27 13:25] VITALS: BP 167/84; PULSE 79; RESP 15; TEMP 36.4; O2SAT 100
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
[2024-04-27] MEDS: CYCLOBENZAPRINE HCL 10 MG TABLET PO (16:13)
[2024-04-27] MEDS: NAPROXEN 500 MG TABLET PO (16:13)
[2024-04-27 16:22] VITALS: BP 142/86; PULSE 84; RESP 16; TEMP 36.4; O2SAT 99
== END 2024-04-27 16:22 | disposition home or self-care (01) ==
PROVIDERS: Emergency Provider Emergency Medicine
DX: S46.819A Strain of other muscles, fascia and tendons at shoulder and upper arm level, unspecified arm, initial encounter (principal); M54.12 Radiculopathy, cervical region; F41.8 Other specified anxiety disorders; I10 Essential (primary) hypertension
CPT/HCPCS: 70450; 72125; 99284; A9270; L0140